=== PATIENT | male | born 1975 | race Caucasian/White ===

== ENCOUNTER → 2017-07-30 | Day surgery (SDC) | payer OTHER ==
[2017-07-15 09:49] VITALS: Ht 180.3 cm; Wt 86.4 kg
[~2017-07-30] VITALS: Ht 180.3 cm; Wt 86.4 kg
[~2017-07-30] MED LIST: ATROPINE SULFATE 0.1 MG/ML 5ML SYR IV PRN; BUPIVACAINE/EPINEPHRINE 0.25% 10 ML VIAL ONE; BUPIVACAINE/EPINEPHRINE 0.25% 1:200,000 30 ML VIAL ONE; BUPIVACAINE/EPINEPHRINE 0.5% MPF 1:200,000 10 ML VIAL ONE; CEFAZOLIN 2000 MG/60 ML D5W IV SCH; DEXAMETHASONE SOD INJ 4 MG/ML VIAL ONE; EpINEphrine INJ 1MG/ML AMP 1 MG/ML AMP ONE; FENTANYL CITRATE INJ 50 MCG/1 ML 2 ML VIAL IV PRN; FENTANYL CITRATE INJ 50 MCG/1 ML 2 ML VIAL ONE; KETO10TA PO; KETOROLAC TROMETHAMINE 30 MG/ML VIAL IV. PRN; LACTATED RINGER'S 1000ML 1,000 ML IV SCH; LIDOCAINE HCL 2% 2 ML VIAL (20MG/ML) ONE; METHYLPREDNISOLONE ACETATE 80 MG/ML VIAL ONE; MIDAZOLAM HCL 1 MG/ML 2ML VIAL ONE; ONDANSETRON INJ 2 MG/ML 2 ML VIAL IV PRN; ONDANSETRON INJ 2 MG/ML 2 ML VIAL ONE; OXYC-57 PO; OXYCODONE/ACETAMINOPHEN 5-325 TAB PO PRN; PROPOFOL IV EMULSION 10 MG/ML 20 ML VIAL IV ONE; ROPIVACAINE 0.5% 5 MG/ML 30 ML VIAL ONE; SODIUM CHLORIDE 0.9% 1000ML 1,000 ML IV SCH
--- NOTE | 2017-07-30 07:02 | History & Physical Bridge - SC ---
H&P Re-Evaluation Bridge Note: I have examined the patient, reviewed the History & Physical and in the interval since the performance of the History & Physical I have noted the following changes of clinical significance: No changes noted
--- NOTE | 2017-07-30 08:18 | [facility] Post Operative Brief Note ---
Immediate Operative Summary Operative Date Jul 30, 2017. Pre-Operative Diagnosis Right Shoulder Adhesive Capsulitis Post-Operative Diagnosis Same Procedure(s) Performed Right Shoulder Arthroscopic Capsular Release Surgeon Dr Grier Bridge Builder Surgeon(s) Garrett Chambers PA-C Estimated Blood Loss Trace Findings as above Specimens None Complication(s) None Disposition Recovery Room / PACU
--- NOTE | 2017-07-30 08:22 | Discharge Instructions-SurgCtr ---
Discharge Instructions Date of Service Jul 30, 2017. Visit Reason for Visit: Right Shoulder Adhesive Capsulitis Discharge Discharge Diagnosis / Problem: SAME ABOVE Discharge Goals Goal(s): Decrease discomfort, Improve function Activity Recommendations Activity Limitations: as noted below Lifting Limitations: gradually increase as tolerated Exercise/Sports Limitations: gradually increase as tolerated Shower/Bathe: tomorrow Driving or Machine Use: resume 1 day after discharge Anesthesia . Post Anesthesia Instructions: If you have had General Anesthesia or IV Sedation: * Do not drive today. * Resume driving when surgeon permits. * Do not make important decisions or sign legal documents today. * Call surgeon for: 1. Temperature elevations greater than 101 degrees F. 2. Uncontrollable pain. 3. Excessive bleeding. 4. Persistent nausea and vomiting. 5. Medication intolerance (nausea, vomiting or rash). * For nausea and vomiting use only clear liquids such as: tea, soda, bouillon until nausea subsides, then gradually increase diet as tolerated. * If you have any concerns or questions, call your surgeon's office. If physician is unavailable and it is an emergency, call 911 or go to the nearest emergency room. . Instructions / Follow-Up Instructions / Follow-Up MEDICATIONS: * Resume previous medications unless instructed otherwise by your surgeon. * Always take pain medication on a full stomach or with food to avoid upset stomach. * Do not drink alcohol or drive while taking narcotics. * Ibuprofen or Tylenol may be taken if narcotic not needed. SPECIAL CARE INSTRUCTIONS: __ None _X_ Keep extremity elevated and iced x 48 hours; apply ice 20-30 minutes 8-10 times/day. May remove at night. _X_ Sling (REMOVE AFTER 24 HOURS) __24 hrs/day __ Remove at night __ Shoulder Immobilizer __ 24 hrs/day __ Remove at night _X_ Dressing __ Maintain until seen in office, may shower with plastic over site _X_ Remove dressings in 24-48 hours and then may shower _X_ Cover incisions with band-aids after showering __ Do not remove steri-strips Call physician if chills or temperature rises above 102 degrees or pain unrelieved by prescribed pain medications at . . Diet Recommendations Home Diet: no limitations Fluid Restriction: None Procedures Procedures Performed: Right Shoulder Arthroscopic Capsular Release Pending Studies Studies pending at discharge: no Work Instructions Return To Work: 3 days (OR WHEN PAIN IS TOLERABLE ) Lifting Limitations: none Medical Emergencies . Who to Call and When: Medical Emergencies: If at any time you feel your situation is an emergency, please call 911 immediately. . Non-Emergent Contact Non-Emergency issues call your: Primary Care Provider Call Non-Emergent contact if: you have a fever, temperature is above 101.5 . . "Provider Documentation" section prepared by Mau Chambers. .
--- NOTE | 2017-07-30 08:30 | OPERATIVE REPORT ---
DATE OF OPERATION: 07/30/2017 PREOPERATIVE DIAGNOSIS: Adhesive capsulitis of the right shoulder. POSTOPERATIVE DIAGNOSIS: Same. PROCEDURE: Right shoulder lysis of adhesions with extensive debridement and manipulation under anesthesia. SURGEON: Dr. Andrea Grier. PAIL TESTER: Garrett Chambers PA-C, whose assistance was necessary for positioning the arm and helping with instrumentation. ANESTHESIA: General with a right interscalene nerve block. COMPLICATIONS: None. CONDITION: Stable to PACU. INDICATIONS: Francisco is a pleasant 42-year-old male who presented to my office with 6 months history of severe tightness and pain of the right shoulder. Clinical examination was diagnostic for adhesive capsulitis of the shoulder. After failing conservative treatment, he elected to undergo a capsular release. OPERATION AND FINDINGS: On 07/30/2017 he arrived at [facility] for the above procedure. He was seen in the preoperative holding area and the operative extremity was identified and signed. He was given a preoperative antibiotic and a right interscalene nerve block. He was taken back to the operating room, laid on the table in supine position and put under general anesthesia. He was then put into the beachchair position. The right shoulder was prepped and draped in sterile fashion. Time-out was done and the patient and operative extremity was properly identified. On preoperative physical examination, he had about 70 degrees of abduction and 40 degrees of external rotation, 0 degrees of internal rotation. With the arm in neutral, he had about 30 degrees of external rotation. A gentle manipulation was done under anesthesia to facilitate insertion of the scope. The scope was then introduced in the posterior portal. Diagnostic arthroscopy showed no cartilage damage to the humeral head or the glenoid. The biceps tendon was intact and went through a normal size biceps guillermina mechanism. The supraspinatus, infraspinatus, teres minor, and subscapularis were all checked and intact. There was a lot of redness, scarring and inflammation of the rotator interval, the middle and anterior inferior glenohumeral ligaments. An anterior portal was made. A shaver and ablator were used to start lysis of adhesions of the entire rotator interval. The interval was loosened up back underneath the coracoid process. The middle glenohumeral ligament was then released and the anterior inferior glenohumeral ligament was released. A shaver was then used to do an extensive debridement. The tissue was debrided back to stable margins to prevent further adherence. Significant time was spent ensuring hemostasis and ensuring not to disrupt the axillary nerve or the subscapularis. Once the tissue was adequately released and debrided, arthroscopic instruments removed from the shoulder. I was able to get his shoulder through a full range of motion. The portal sites were then closed with 3-0 nylon suture. The shoulder was then injected with 80 mg of Depo-Medrol and 5 mL of Marcaine. He was then placed in a soft dressing and a regular arm sling. He was then extubated, transferred to a litter and taken to the postanesthesia care unit in stable condition. He tolerated the procedure well. I attest to the content of the Intraoperative Record and any orders documented therein. Any exception s are noted below.
[2017-07-30 09:25] VITALS: BP 108/70; PULSE 56; TEMP 36.4; O2SAT 98
--- NOTE | 2017-07-30 09:29 | Anesthesia Progress Nt - [facility] ---
Anesthesia Post Op Note Date & Time Jul 30, 2017 at 09:28 Vital Signs Pain Intensity: 0 Vital Signs Past 12 Hours Date Time Temp Pulse Resp B/P (MAP) Pulse Ox O2 Delivery O2 Flow Rate FiO2 07/30/17 09:25 36.4 56 16 108/70 (83) 98 Room Air 07/30/17 09:09 36.2 60 16 114/77 (89) 100 Room Air 07/30/17 08:51 120/74 07/30/17 08:49 36.2 57 12 120/74 95 Room Air 07/30/17 08:49 65 12 07/30/17 08:49 64 12 95 07/30/17 08:46 115/78 07/30/17 08:44 63 16 07/30/17 08:44 62 16 95 07/30/17 08:41 116/76 07/30/17 08:39 66 23 07/30/17 08:39 65 23 98 07/30/17 08:36 121/79 07/30/17 08:34 77 15 98 07/30/17 08:34 73 15 07/30/17 08:31 130/83 07/30/17 08:29 66 16 07/30/17 08:29 66 16 98 07/30/17 08:26 124/85 07/30/17 08:24 73 14 07/30/17 08:24 71 14 97 07/30/17 08:23 36.3 75 18 129/88 98 Mask 6 07/30/17 08:21 129/88 07/30/17 07:34 20 07/30/17 07:33 64 07/30/17 07:33 64 17 100 07/30/17 07:31 115/74 07/30/17 07:28 55 15 100 07/30/17 07:28 54 07/30/17 07:27 58 14 100 07/30/17 07:27 58 07/30/17 07:26 110/75 07/30/17 07:22 58 14 100 07/30/17 07:22 58 07/30/17 07:21 112/73 07/30/17 07:19 77 22 100 07/30/17 07:19 76 07/30/17 07:16 120/77 07/30/17 07:14 66 17 100 07/30/17 07:14 66 07/30/17 07:13 124/82 07/30/17 07:09 57 07/30/17 07:09 57 0 98 07/30/17 07:04 62 0 98 07/30/17 07:04 61 07/30/17 06:59 65 19 98 07/30/17 06:59 63 19 07/30/17 06:27 36.5 65 16 116/74 (88) 98 Room Air Notes Mental Status: alert / awake / arousable, participated in evaluation Pt Amnestic to Procedure: Yes Nausea / Vomiting: adequately controlled Pain: adequately controlled Airway Patency, RR, SpO2: stable & adequate BP & HR: stable & adequate Hydration State: stable & adequate Anesthetic Complications: no major complications apparent
== END | disposition home or self-care (01) ==
LOC: X.SURG 06:15
PROVIDERS: ATTEND Orthopaedic Surgery
DX: M75.01 Adhesive capsulitis of right shoulder (principal); F17.200 Nicotine dependence, unspecified, uncomplicated

== ENCOUNTER 2017-12-10 21:28 | Emergency (ER) | payer OTHER ==
[~2017-12-10] VITALS: Ht 180.3 cm; Wt 88.0 kg
[~2017-12-10 21:28] MED LIST changes: -ATROPINE SULFATE 0.1 MG/ML 5ML SYR IV PRN; -BUPIVACAINE/EPINEPHRINE 0.25% 10 ML VIAL ONE; -BUPIVACAINE/EPINEPHRINE 0.25% 1:200,000 30 ML VIAL ONE; -BUPIVACAINE/EPINEPHRINE 0.5% MPF 1:200,000 10 ML VIAL ONE; -CEFAZOLIN 2000 MG/60 ML D5W IV SCH; -DEXAMETHASONE SOD INJ 4 MG/ML VIAL ONE; -EpINEphrine INJ 1MG/ML AMP 1 MG/ML AMP ONE; -FENTANYL CITRATE INJ 50 MCG/1 ML 2 ML VIAL IV PRN; -FENTANYL CITRATE INJ 50 MCG/1 ML 2 ML VIAL ONE; -KETOROLAC TROMETHAMINE 30 MG/ML VIAL IV. PRN; -LACTATED RINGER'S 1000ML 1,000 ML IV SCH; -LIDOCAINE HCL 2% 2 ML VIAL (20MG/ML) ONE; -METHYLPREDNISOLONE ACETATE 80 MG/ML VIAL ONE; -MIDAZOLAM HCL 1 MG/ML 2ML VIAL ONE; -ONDANSETRON INJ 2 MG/ML 2 ML VIAL IV PRN; -ONDANSETRON INJ 2 MG/ML 2 ML VIAL ONE; -OXYCODONE/ACETAMINOPHEN 5-325 TAB PO PRN; -PROPOFOL IV EMULSION 10 MG/ML 20 ML VIAL IV ONE; -ROPIVACAINE 0.5% 5 MG/ML 30 ML VIAL ONE; -SODIUM CHLORIDE 0.9% 1000ML 1,000 ML IV SCH
[2017-12-10 21:45] VITALS: TEMP 37; Ht 180.3 cm; Wt 88.0 kg
[2017-12-10] MEDS ORDERED: DICL-201 PO (21:59)
--- NOTE | 2017-12-10 22:47 | DIAGNOSTIC IMAGING REPORT ---
R HEEL MIN 2 VIEWS CLINICAL HISTORY: ?R achilles tear question FX pain COMPARISON: None. DISCUSSION: The bones and joint spaces appear intact. There is no evidence of fracture, dislocation or bony disease. There is no evidence for soft tissue swelling. IMPRESSION: Negative study. No evidence for fracture. The above report was generated using voice recognition software. It may contain grammatical, syntax or spelling errors. Electronically signed by: Jakob Jimenez M.D. 12/10/2017 10:46 PM Dictated Date/Time: 12/10/2017 10:45 PM
--- NOTE | 2017-12-10 23:13 | EMERGENCY ROOM VISIT NOTE ---
History First contact with patient: 22:03 Chief Complaint: ANKLE PAIN Stated Complaint: TORN RT ACHILLES TENDON History of Present Illness The patient is a 42 year old male who presents to the Emergency Room with complaints of right foot pain after an injury today prior to arrival. The patient was sprinting up the driveway. He tried to push off of his left foot, and felt a pop in the back of his foot. He thinks that maybe he injured his Achilles ankle. He is unable to bear weight. He denies any previous injury to the ankle. The pain extends up to the calf. He has taken diclofenac with decent pain relief. He denies any numbness or tingling. Review of Systems 6 system review negative. Please see pertinent positives in the history of present illness section. Past Medical/Surgical History Status post shoulder surgery Social History Smoking Status: Current Some Day Smoker Housing Status: lives with family Current/Historical Medications Scheduled Diclofenac (Voltaren), 75 MG PO DIRECTED Physical Exam Vital Signs Date Time Temp Pulse Resp B/P (MAP) Pulse Ox O2 Delivery O2 Flow Rate FiO2 12/10/17 23:32 74 18 128/85 98 12/10/17 21:45 37.0 76 20 135/85 98 Room Air Physical Exam VITALS: Vitals are noted on the nurse's note and reviewed by myself. Vital signs stable. GENERAL: 42-year-old male, in obvious discomfort SKIN: The skin was intact HEAD: Normocephalic atraumatic. MUSCULOSKELETAL: RLE: Swelling noted over the right Achilles. Positive Silva's sign. DP pulse +2. No pain to palpation over the heel. There is pain over the right calf. Pain with attempts dorsiflexion and plantar flexion NEURO: Patient was alert and oriented to person place and time. Normal sensation to touch. No focal neurological deficits. Medical Decision & Procedures ER Provider Diagnostic Interpretation: heel xrays IMPRESSION: Negative study. No evidence for fracture. The above report was generated using voice recognition software. It may contain grammatical, syntax or spelling errors. Electronically signed by: Jakob Jimenez M.D. 12/10/2017 10:46 PM Dictated Date/Time: 12/10/2017 10:45 PM The status of this report is Signed. Draft = Not yet reviewed or approved by Radiologist. Signed = Reviewed and approved by Radiologist. <AttendingPhy></AttendingPhy> <FamilyPhy>Andrea Thacker, DO</FamilyPhy> < PrimaryPhy>Andrea Thacker, DO</PrimaryPhy> <UnitNumber>[id number]</ UnitNumber> <VisitNumber>[id number]</VisitNumber> <PatientName>GOGO MORALES< /PatientName> <DateOfBirth>1975</DateOfBirth> <Location>[facility]</Location> < ServiceDate>12/10/17</ServiceDate> <MNE>ESINDI</MNE> <OrderingPhy>Jennifer Lamb PA-C</OrderingPhy ED Course The patient was seen and examined He declined pain medication Imaging was performed and reviewed The findings were discussed with the patient. Due to insurance reasons, he refused further treatment. I advised him of the consequences of this. He voiced understanding. The patient was discharged in a wheelchair. Medical Decision Differential diagnosis: Achilles tendon rupture, gastrocnemius injury, fracture , sprain This patient is a 42-year-old male presents to the emergency department with pain in the back of his ankle/foot. He was worried about and Achilles injury. On exam, he does have an injury to the Achilles. Imaging was negative for any fracture/avulsion. I highly advised that we splint the patient and give him crutches. The patient refused due to insurance reasons. Unfortunately, emergency room visits are not covered in his insurance plan. He agreed to try to attempt nonweightbearing status. He will see his orthopedic doctor in the morning for further treatment. This chart was completed in part utilizing [employer] Speech Voice Recognition software. Attempts were made to minimize the grammatical errors, random word insertions, pronoun errors and incomplete sentences. Any formal questions or concerns about the content, text or information contained within the body of this dictation should be directly addressed to the provider for clarification. Impression Primary Impression: Ruptured, tendon, Achilles Departure Information Dispostion Home / Self-Care Condition GOOD Referrals Andrea Thacker, (PCP) Andrea Grier DO Patient Instructions [facility] Additional Instructions You had been evaluated in the emergency department for a ruptured right Achilles tendon. I would typically recommend a splint and no weightbearing. Due to insurance reasons, this will be done at another facility. Please do not bear weight on the right foot tonight. Tylenol and ibuprofen for pain Ibuprofen 800 mg and/or Tylenol 1000 mg every 8 hours. You may also alternate these medications for more effective pain relief: Ibuprofen --4 HRS--> Tylenol --4 HRS--> ibuprofen --4 HRS--> Tylenol .... A substitute for ibuprofen would be the diclofenac that you have been taking. Please take as directed. Please do not hesitate to return to the emergency department with a new, worsening or concerning symptoms.
[2017-12-10 23:32] VITALS: BP 128/85; PULSE 74; O2SAT 98
[2017-12-16] MEDS ORDERED: OXYC-57 PO (10:26)
== END 2017-12-10 23:33 | disposition home or self-care (01) ==
LOC: C.EDB 21:30 → C.EDD 23:33
DX: S86.011A Strain of right Achilles tendon, initial encounter (principal); Y93.89 Activity, other specified; Y92.89 Other specified places as the place of occurrence of the external cause; F17.210 Nicotine dependence, cigarettes, uncomplicated; Z79.899 Other long term (current) drug therapy

== ENCOUNTER → 2017-12-16 | Day surgery (SDC) | payer OTHER ==
[2017-12-14 08:13] VITALS: Ht 180.3 cm; Wt 88.6 kg
[~2017-12-16] VITALS: Ht 180.3 cm; Wt 88.6 kg
[~2017-12-16] MED LIST changes: +ALBUT/IPRATROP 3MG/0.5MG NEB 3 ML VIAL INH ONE; +ALBUT/IPRATROP 3MG/0.5MG NEB 3 ML VIAL ONE; +ATROPINE SULFATE 0.1 MG/ML 5ML SYR IV PRN; +BUPIVACAINE 0.5 % 5 MG/1 ML MPF 30ML VIAL ONE; +BUPIVACAINE/EPINEPHRINE 0.25% 1:200,000 30 ML VIAL ONE; +CEFAZOLIN 2000MG IV PUSH 10 ML IV SCH; +CEFAZOLIN SOD 1 GM VIAL ONE; +CEFAZOLIN SOD 1000MG/5 ML IV PUSH IV ONE; +DEXAMETHASONE SOD INJ 4 MG/ML VIAL ONE; +DICL-201 PO; +EpHEDrine SULFATE INJ 50 MG/ML AMP IV PRN; +EpINEphrine INJ 1MG/ML AMP 1 MG/ML AMP ONE; +FENTANYL CITRATE INJ 50 MCG/1 ML 2 ML VIAL IV PRN; +FENTANYL CITRATE INJ 50 MCG/1 ML 2 ML VIAL ONE; +GLYCOPYRROLATE INJ 0.2 MG/ML VIAL ONE; -KETO10TA PO; +LACTATED RINGER'S 1000ML 1,000 ML IV SCH; +LIDOCAINE HCL 2% 2 ML VIAL (20MG/ML) ONE; +MIDAZOLAM HCL 1 MG/ML 2ML VIAL ONE; +MISSING PHYSICIAN SIGNATURE ON ORDER SCH; +NEOSTIGMINE METHYLSULFATE 5 MG/5 ML SYR ONE; +ONDANSETRON INJ 2 MG/ML 2 ML VIAL IV PRN; +ONDANSETRON INJ 2 MG/ML 2 ML VIAL ONE; +OXYCODONE/ACETAMINOPHEN 5-325 TAB PO PRN; +PROPOFOL IV EMULSION 10 MG/ML 20 ML VIAL IV ONE; +ROCURONIUM BROMIDE 10 MG/ML 5 ML VIAL IV ONE; +ROPIVACAINE 0.5% 5 MG/ML 30 ML VIAL ONE; +SODIUM CHLORIDE 0.9% 1000ML 1,000 ML IV SCH
--- NOTE | 2017-12-16 10:20 | [facility] Post Operative Brief Note ---
Immediate Operative Summary Operative Date Dec 16, 2017. Pre-Operative Diagnosis Right achilles tendon rupture Post-Operative Diagnosis Same as pre-op Procedure(s) Performed Right achilles tendon repair Surgeon Laborer General Surgeon(s) Carol ALEJANDRO Estimated Blood Loss 10ML Findings Right Achilles Tendon Rupture Specimens None Anesthesia General Complication(s) None Disposition Recovery Room / PACU
--- NOTE | 2017-12-16 10:30 | Discharge Instructions-SurgCtr ---
Discharge Instructions Date of Service Dec 16, 2017. Visit Reason for Visit: Right Achilles Tendon Rupture Discharge Discharge Diagnosis / Problem: right achilles tendon tear Discharge Goals Goal(s): Improve function, Therapeutic intervention Activity Recommendations Activity Limitations: per Instructions/Follow-up section Weightbearing Status: Right non-weightbearing Anesthesia . Post Anesthesia Instructions: If you have had General Anesthesia or IV Sedation: * Do not drive today. * Resume driving when surgeon permits. * Do not make important decisions or sign legal documents today. * Call surgeon for: 1. Temperature elevations greater than 101 degrees F. 2. Uncontrollable pain. 3. Excessive bleeding. 4. Persistent nausea and vomiting. 5. Medication intolerance (nausea, vomiting or rash). * For nausea and vomiting use only clear liquids such as: tea, soda, bouillon until nausea subsides, then gradually increase diet as tolerated. * If you have any concerns or questions, call your surgeon's office. If physician is unavailable and it is an emergency, call 911 or go to the nearest emergency room. . Instructions / Follow-Up Instructions / Follow-Up MEDICATIONS: * Resume previous medications unless instructed otherwise by your surgeon. * Always take pain medication on a full stomach or with food to avoid upset stomach. * Do not drink alcohol or drive while taking narcotics. * Ibuprofen or Tylenol may be taken if narcotic not needed. SPECIAL CARE INSTRUCTIONS: __ None _x_ Keep extremity elevated and iced x 48 hours; apply ice 20-30 minutes 8-10 times/day. May remove at night. _x_ Crutches __ May discard when able __ Brace/Post-op shoe __ 24 hrs/day __ Remove at night _x_ Dressing _x_ Maintain until seen in office, may shower with plastic over site __ Remove dressings in 24-48 hours and then may shower __ Cover incisions with band-aids after showering __ Do not remove steri-strips Call physician if chills or temperature rises above 102 degrees or pain unrelieved by prescribed pain medications. Office [phone] follow up in 2 weeks Diet Recommendations Home Diet: resume previous diet Procedures Procedures Performed: Right achilles tendon repair Pending Studies Studies pending at discharge: no Medical Emergencies . Who to Call and When: Medical Emergencies: If at any time you feel your situation is an emergency, please call 911 immediately. . Non-Emergent Contact Non-Emergency issues call your: Surgeon . . "Provider Documentation" section prepared by Dom Garrison. .
[2017-12-16 11:05] VITALS: TEMP 36.4
[2017-12-16 11:30] VITALS: BP 123/73; PULSE 62; O2SAT 96
--- NOTE | 2017-12-16 11:36 | Anesthesia Progress Nt - [facility] ---
Anesthesia Post Op Note Date & Time Dec 16, 2017 at 11:36 Vital Signs Pain Intensity: 0 Vital Signs Past 12 Hours Date Time Temp Pulse Resp B/P (MAP) Pulse Ox O2 Delivery O2 Flow Rate FiO2 12/16/17 11:30 62 18 123/73 (90) 96 Room Air 12/16/17 11:05 36.4 72 18 130/78 (95) 96 Room Air 12/16/17 11:00 74 18 12/16/17 11:00 73 18 143/86 97 12/16/17 10:58 36.4 73 16 143/86 97 Room Air 12/16/17 10:55 69 15 12/16/17 10:55 68 15 126/75 94 12/16/17 10:50 78 17 12/16/17 10:50 78 17 122/82 100 12/16/17 10:45 67 18 12/16/17 10:45 66 18 137/82 99 12/16/17 10:40 66 17 131/82 100 12/16/17 10:40 66 17 12/16/17 10:35 73 13 12/16/17 10:35 73 13 134/77 99 12/16/17 10:30 69 15 179/103 100 12/16/17 10:30 68 15 12/16/17 10:25 90 14 12/16/17 10:25 88 14 153/94 100 12/16/17 09:04 0 12/16/17 09:00 135/76 12/16/17 08:59 63 8 100 12/16/17 08:59 63 12/16/17 08:55 130/76 12/16/17 08:54 78 12/16/17 08:54 77 13 100 12/16/17 08:52 134/76 12/16/17 08:49 88 0 12/16/17 08:44 85 0 12/16/17 08:03 36.6 76 16 124/78 (93) 99 Room Air Notes Mental Status: alert / awake / arousable, participated in evaluation Pt Amnestic to Procedure: Yes Nausea / Vomiting: adequately controlled Pain: adequately controlled Airway Patency, RR, SpO2: stable & adequate BP & HR: stable & adequate Hydration State: stable & adequate Anesthetic Complications: no major complications apparent
--- NOTE | 2017-12-16 11:55 | OPERATIVE REPORT ---
DATE OF OPERATION: 12/16/2017 SURGEON: Francisco Escobedo MD ORGANIZATIONAL EFFECTIVENESS DIRECTOR: GIANNI Jeronimo PREOPERATIVE DIAGNOSIS: Right Achilles tendon rupture. POSTOPERATIVE DIAGNOSIS: Same. PROCEDURE PERFORMED: Right Achilles tendon repair. COMPLICATIONS: None. ESTIMATED BLOOD LOSS: 10 mL TOURNIQUET TIME: 24 minutes at 300 mmHg. ANESTHESIA: General. SPECIMENS: None. OPERATIVE INDICATIONS: The patient is a 42-year-old fairly active gentleman who injured his right leg last week. He was chasing one of his kids when he felt an acute onset of pain and a pop in his right calf. He was seen in the ER in our clinic and diagnosed with the Achilles tendon rupture. The patient elected to proceed with surgical treatment. OPERATIVE PROCEDURE: The patient taken to the operating room, identified and placed on the operating table in supine position. All contact areas were appropriately padded. IV antibiotics were provided by anesthesia team. General anesthetic was implemented by anesthesia team. A right thigh tourniquet was then placed. The patient was then placed in the prone position using the prone positioning devices. All contact areas were meticulously padded and the right foot and lower extremity were then prepped and draped in the usual sterile fashion. The right leg was elevated and exsanguinated with Esmarch and tourniquet was placed at 300 mmHg. A posterior medial approach to the Achilles tendon was then performed through a longitudinal incision made over the medial border of the Achilles tendon. Sharp dissection was carried out through the subcutaneous tissue down to the level of the fascial sheath/paratenon. I incised this longitudinally, taking great care to protect the soft tissue flap. I exposed the Achilles tendon rupture, which was obvious. There were mop ends both primarily proximally. There was no excessive shredding. The tear was complete. I then placed a #5 Tycron suture in a modified Parnell fashion through the distal tendon and a similar suture through the proximal tendon. We then plantarflexed the foot and tied the suture. This provided excellent approximation of the tendon. I then irrigated extensively. I injected locally with 30 mL of 0.5% Marcaine with epinephrine. The paratenon/fascia was then closed with 2-0 Vicryl suture in a [id number] fashion. The tourniquet was then let down for a tourniquet time of 24 minutes. Hemostasis was assured with use of electrocautery. The subcutaneous tissues were then closed with 3-0 Vicryl suture in a buried interrupted fashion. Skin was closed with 3-0 nylon suture in a simple fashion. The leg was then cleaned and dried and a sterile dressing of Xeroform, 4 x 4's, sterile cast padding and a well-padded posterior splint with the foot in about 30 degrees of plantar flexion was applied. The patient was then brought out of general anesthesia and transferred to the recovery room in stable condition. The patient tolerated the procedure well with no complications. All needle and sponge counts were correct at the end of the operation. I attest to the content of the Intraoperative Record and any orders documented therein. Any exception s are noted below.
== END | disposition home or self-care (01) ==
LOC: X.SURG 07:54
PROVIDERS: ATTEND Orthopaedic Surgery Sports Medicine
DX: S86.091A Other specified injury of right Achilles tendon, initial encounter (principal); X58.XXXA Exposure to other specified factors, initial encounter; Y93.02 Activity, running; Z90.49 Acquired absence of other specified parts of digestive tract

== ENCOUNTER → 2018-02-08 | Day surgery (SDC) | payer OTHER ==
[2018-01-22 09:11] VITALS: BMI 27.0
[~2018-02-08] VITALS: Ht 180.3 cm; Wt 88.6 kg
[~2018-02-08] MED LIST changes: -ALBUT/IPRATROP 3MG/0.5MG NEB 3 ML VIAL INH ONE; -ALBUT/IPRATROP 3MG/0.5MG NEB 3 ML VIAL ONE; -BUPIVACAINE 0.5 % 5 MG/1 ML MPF 30ML VIAL ONE; -BUPIVACAINE/EPINEPHRINE 0.25% 1:200,000 30 ML VIAL ONE; -CEFAZOLIN 2000MG IV PUSH 10 ML IV SCH; -CEFAZOLIN SOD 1 GM VIAL ONE; -CEFAZOLIN SOD 1000MG/5 ML IV PUSH IV ONE; -DEXAMETHASONE SOD INJ 4 MG/ML VIAL ONE; -EpINEphrine INJ 1MG/ML AMP 1 MG/ML AMP ONE; -FENTANYL CITRATE INJ 50 MCG/1 ML 2 ML VIAL IV PRN; -FENTANYL CITRATE INJ 50 MCG/1 ML 2 ML VIAL ONE; -GLYCOPYRROLATE INJ 0.2 MG/ML VIAL ONE; -LACTATED RINGER'S 1000ML 1,000 ML IV SCH; -MIDAZOLAM HCL 1 MG/ML 2ML VIAL ONE; -MISSING PHYSICIAN SIGNATURE ON ORDER SCH; -NEOSTIGMINE METHYLSULFATE 5 MG/5 ML SYR ONE; -ONDANSETRON INJ 2 MG/ML 2 ML VIAL IV PRN; -ONDANSETRON INJ 2 MG/ML 2 ML VIAL ONE; -OXYC-57 PO; -OXYCODONE/ACETAMINOPHEN 5-325 TAB PO PRN; -ROCURONIUM BROMIDE 10 MG/ML 5 ML VIAL IV ONE; -ROPIVACAINE 0.5% 5 MG/ML 30 ML VIAL ONE; -SODIUM CHLORIDE 0.9% 1000ML 1,000 ML IV SCH; +SODIUM CHLORIDE 0.9% 500ML 500 ML IV ONE
[2018-02-08 14:04] VITALS: Ht 180.3 cm; Wt 88.6 kg
--- NOTE | 2018-02-08 15:04 | Endo History and Physical ---
History & Physical Date of Service: Feb 08, 2018. Chief Complaint: FAMILY HX OF COLON CANCER UNCLE Referring Physician: DR ZION ROSA History of Present Illness 42 yo CM who presents for colonoscopy secondary to family history of colon cancer. Past Surgical History Hx Cardiac Surgery: No Hx Internal Defibrillator: No Hx Pacemaker: No Hx Abdominal Surgery: Yes (APPY) Hx of Implantable Prosthesis: No Hx Post-Op Nausea and Vomiting: No Hx Cancer Surgery: No Hx Thoracic Surgery: No Hx Orthopedic: Yes (RT SHOULDER SURGERY, RT ACHILLES TENDON REPAIR) Hx Urinary Tract Surgery: No Family History Colon CA Social History Smoking Status: Never Smoker Hx Substance Use: No Hx Alcohol Use: Yes (OCCASIONAL) Allergies Coded Allergies: NO KNOWN DRUG ALLERGIES (Verified Allergy, Unknown, ., 02/08/18) [place] (Verified Allergy, Unknown, HIVES, 02/08/18) Current Medications Reported Home Medications Medications Dose Route/Sig Max Daily Dose Days Date Category Dose Instructions Voltaren (Diclofenac Sodium) 75 Mg Tabcr 75 Mg PO BID PRN 01/22/18 Reported WITH FOOD Vital Signs Weight (Kilograms): 88.64 Height (Feet): 5 Height (Inches): 11 Date Time Temp Pulse Resp B/P (MAP) Pulse Ox O2 Delivery O2 Flow Rate FiO2 02/08/18 14:11 36.8 64 16 122/78 (93) 98 Room Air Physical Exam General Appearance: WD/WN, no apparent distress Respiratory/Chest: Auscultation: breath sounds normal Cardiovascular: Heart Auscultation: RRR Abdomen: Bowel Sounds: normal Inspection & Palpation: soft, non-distended, no tenderness, guarding & rebound Assessment and Plan Assessment: 42 yo CM who presents for colonoscopy secondary to family history of colon cancer. Plan: Proceed with colonoscopy.
--- NOTE | 2018-02-08 15:38 | Anesthesiology Progress Note ---
Anesthesia Post Op Note Date & Time Feb 08, 2018 at 15:38 Vital Signs Pain Intensity: 0 Vital Signs Past 12 Hours Date Time Temp Pulse Resp B/P (MAP) Pulse Ox O2 Delivery O2 Flow Rate FiO2 02/08/18 14:11 36.8 64 16 122/78 (93) 98 Room Air Notes Mental Status: alert / awake / arousable, participated in evaluation Pt Amnestic to Procedure: Yes Nausea / Vomiting: adequately controlled Pain: adequately controlled Airway Patency, RR, SpO2: stable & adequate BP & HR: stable & adequate Hydration State: stable & adequate Anesthetic Complications: no major complications apparent
--- NOTE | 2018-02-08 15:55 | GI REPORT ---
Procedure Date: 02/08/2018 2:32 PM Procedure: Colonoscopy Indications: Family history of colon cancer in a distant relative Medicines: Monitored Anesthesia Care Complications: No immediate complications. Estimated Blood Loss: Estimated blood loss: none. Procedure: Pre-Anesthesia Assessment: - Prior to the procedure, a History and Physical was performed, and patient medications and allergies were reviewed. The patient's tolerance of previous anesthesia was also reviewed. The risks and benefits of the procedure and the sedation options and risks were discussed with the patient. All questions were answered, and informed consent was obtained. Prior Anticoagulants: The patient has taken no previous anticoagulant or antiplatelet agents. ASA Grade Assessment: II - A patient with mild systemic disease. After reviewing the risks and benefits, the patient was deemed in satisfactory condition to undergo the procedure. After I obtained informed consent, the scope was passed under direct vision. Throughout the procedure, the patient's blood pressure, pulse, and oxygen saturations were monitored continuously. The scope was introduced through the anus and advanced to the terminal ileum. The colonoscopy was performed without difficulty. The patient tolerated the procedure well. The quality of the bowel preparation was good. The terminal ileum, the appendiceal orifice and the rectum were photographed. Findings: The perianal and digital rectal examinations were normal. Non-bleeding internal hemorrhoids were found during retroflexion. The hemorrhoids were small. The exam was otherwise without abnormality. Impression: - Non-bleeding internal hemorrhoids. - The examination was otherwise normal. - No specimens collected. Recommendation: - Resume previous diet. - Continue present medications. - Repeat colonoscopy in 5 years for surveillance. - Return to primary care physician as previously scheduled. Michael White, 02/08/2018 3:55:41 PM This report has been signed electronically. Note Initiated On: 02/08/2018 2:32 PM I attest to the content of the Intraoperative Record and orders documented therein, exceptions below
--- NOTE | 2018-02-08 15:59 | Discharge Instructions ---
Endoscopy Patient Instructions Date / Procedure(s) Performed Feb 08, 2018. Colonoscopy Allergy Information Coded Allergies: NO KNOWN DRUG ALLERGIES (Verified Allergy, Unknown, ., 02/08/18) [place] (Verified Allergy, Unknown, HIVES, 02/08/18) Discharge Date / Findings Feb 08, 2018. Internal hemorrhoids Medication Instructions OK to resume all medications today as prescribed Reported Home Medications Medications Dose Route/Sig Max Daily Dose Days Date Category Dose Instructions Voltaren (Diclofenac Sodium) 75 Mg Tabcr 75 Mg PO BID PRN 01/22/18 Reported WITH FOOD Provider Instructions Activity Restrictions - No exercising or heavy lifting for 24 hours. - Do not drink alcohol the day of the procedure. - Do not drive a car or operate machinery until the day after the procedure. - Do not make any important decisions or sign important papers in 24 hours after the procedure. Following Day: - Return to full activity which may include returning to work/school. Diet Start your diet with liquids and light foods (jello, soup, juice, toast). Then eat your usual diet if not nauseated. Treatment For Common After Affects For mild abdominal pain, bloating, or excessive gas: - Rest - Eat lightly - Lie on right side Follow-Up Information Follow-up with DR ZION ROSA as scheduled Anesthesia Information What You Should Know You have had a procedure that required some medicine to reduce anxiety and discomfort. This treatment is called moderate sedation. After receiving the treatment, you may be sleepy, but you will be able to breathe on your own. The effects of the treatment may last for several hours. Follow these instructions along with Activity/Diet recommendations noted above: * Do NOT do anything where dizziness or clumsiness would be dangerous. * Rest quietly at home today, then you can be up and about tomorrow. * Have a responsible person stay with you the rest of today. * You may have had an I.V. today. If so, you may take the dressing off later today. Recommendations Call your doctor if: * Trouble breathing * Continuous vomiting for more than 24 hours * Temperature above 101 degrees * Severe abdominal pain or bloating * Pain not relieved by pain medicine ordered * There is increased drainage or redness from any incision * A large amount of rectal bleeding greater than 2-3 tablespoons. (If you had a polyp/s removed or have hemorrhoids, a small amount of blood - from the rectum is to be expected.) * You have any unanswered questions or concerns. IN THE EVENT OF A SERIOUS EMERGENCY, GO TO THE NEAREST EMERGENCY ROOM Your discharge instructions were prepared by provider Michael White. Patient Instructions Signature Page Ketan Sidhu Patient (or Guardian) Signature/Date: I have read and understand the instructions given to me by my caregivers. Caregiver/RN/Doctor Signature/Date: The above-named patient and/or guardian has received patient instructions on this date. + Original Patient Signature Page (only) stays with chart. Please make copy for patient.
[2018-02-08 16:09] VITALS: BP 105/70; PULSE 66; O2SAT 99
== END | disposition home or self-care (01) ==
LOC: C.GI 13:47
PROVIDERS: ATTEND Internal Medicine
DX: Z12.11 Encounter for screening for malignant neoplasm of colon (principal); K64.8 Other hemorrhoids; Z91.018 Allergy to other foods; Z80.0 Family history of malignant neoplasm of digestive organs; Z90.49 Acquired absence of other specified parts of digestive tract

== ENCOUNTER 2024-03-28 05:08 | Observation (INO) ==
[2024-03-28] MEDS: ONDANSETRON INJ 2 MG/ML 2 ML VIAL IV STA (05:46)
[2024-03-28 06:19] LABS: Basophils # (auto) 0.02 K/uL (0.00-0.20); Basophils % (auto) 0.3 %; Eosinophils # (auto) 0.02 K/uL (0.00-0.50); Eosinophils % (auto) 0.3 %; Hematocrit (blood only) 42.5 % (42.0-52.0); Hemoglobin 15.3 g/dl (14.0-18.0); Immature Granulocytes # (auto) 0.02 K/uL (0.01-0.20); Immature Granulocytes % (auto) 0.3 %; Lymphocytes # (auto) 0.91 K/uL (1.20-3.40); Lymphocytes % (auto) 12.9 %; Mean Corpuscular Volume 86.2 fL (80.0-100.0); Mean Platelet Volume 9.6 fL (9.4-12.4); Monocytes # (auto) 0.71 K/uL (0.11-0.59); Monocytes % (auto) 10.1 %; Neutrophils # (auto) 5.37 K/uL (1.40-6.50); Neutrophils % (auto) 76.1 %; Platelet Count 189 K/uL (130-400); RDW Coefficient of Variation 12.1 % (11.5-14.5); RDW Standard Deviation 38.1 fL (36.4-46.3); Red Blood Count 4.93 M/uL (4.70-6.10); White Blood Count 7.05 K/ul (4.8-10.8)
[2024-03-28 06:44] LABS: Albumin Globulin Ratio 1.6 (0.9-2); Albumin Level 4.4 gm/dl (3.4-5.0); BUN Creatinine Ratio 15.7 (10-20); Bilirubin,Total 0.9 mg/dl (0.2-1.0); Calcium 9.2 mg/dl (8.6-10.3); Creatinine Clr Calc Pharmacy 115.7 ml/min; Est GFR (African American) 115.6 ml/min; Est GFR (Non-African American) 99.7 ml/min; Globulin 2.7 gm/dl (2.5-4.0); Potassium 4.1 mmol/L (3.5-5.1); Total Protein 7.1 gm/dl (6.0-8.3)
[2024-03-28] MEDS: MoRPHine SULFATE 4 MG/ML 1 ML CARP\\VIAL IV STA (07:16)
[2024-03-28] MEDS: SODIUM CHLORIDE 0.9% 1,000 ML IV ONE (07:17)
--- NOTE | 2024-03-28 07:25 | Emergency Department Note ---
Impression & Plan Cholecystitis, Abdominal pain, acute, right upper quadrant ED Provider Note NAME: GOGO MORALES AGE: 48 SEX: M : 1975 ARRIVES VIA: Walk-In INFORMANT: Patient, ED PROVIDER(S): Richi Dominguez DO CHIEF COMPLAINT: Abdominal pain HPI: The patient is a 48-year-old male who presented to the emergency department for an evaluation of abdominal pain. The patient describes right upper quadrant abdominal pain and fullness. He states his pain began over the course the last 3 to 4 days. He denies having any black or tarry stools. He denies having any chest pain. He denies having any shortness of breath. He denies having any hematuria. The patient states he had a similar episode when he was younger and was told it was because of swollen lymph nodes. He does have a history of some alcohol use a couple times a week. The patient has not been seen by his provider prior to coming emergency department. ROS: See above HPI for pertinent positives & negatives. A total of 10 systems reviewed and were otherwise negative. PAST MEDICAL HISTORY: See Below PAST SURGICAL HISTORY: See Below FAMILY HISTORY: See Below SOCIAL HISTORY: See Below HOME MEDICATIONS: See Below ALLERGIES: See Below VITALS: See Below PHYSICAL EXAMINATION: GENERAL: Patient is awake alert in no acute distress patient is resting comfortably and showing no signs of anxiety EYES: The conjunctivae are clear. The pupils are round and reactive. EARS, NOSE, MOUTH AND THROAT: The nose is without any evidence of any deformity. NECK: The neck is nontender and supple. RESPIRATORY: Normal respiratory effort is noted there is no evidence of wheezing rhonchi or rales CARDIOVASCULAR: Regular rate and rhythm noted there no murmurs rubs or gallops normal S1 normal S2. GASTROINTESTINAL: The abdomen was mildly distended. There is right upper quadrant tenderness to palpation which is moderate. BACK: No midline tenderness or or step-off noted range of motion in flexion extension as well as rotation no signs of muscle spasm noted MUSCULOSKELETAL/EXTREMITIES: There is no evidence of gross deformity full range of motion is noted in the hips and shoulders. SKIN: There is no obvious evidence of any rash. There are no petechiae, pallor or cyanosis noted. NEUROLOGIC: Patient is awake alert and oriented x3 MEDICAL DECISION MAKING: The patient is a 48-year-old male who presented to the emergency department with right-sided abdominal pain. The patient had reproducible right-sided abdominal pain on my physical exam. Pain was very significant. He was treated with IV fluids and IV pain medication. He was also treated with IV antibiotics. I discussed the patient's laboratory and radiographic studies with him. His condition appears to be consistent with cholecystitis. I discussed the patient's condition with the on-call general surgical group. They have agreed to evaluate the patient in the emergency department for further management and disposition. Triage Nursing notes reviewed. Prior medical records reviewed Vital Signs: reviewed and remarkable for no significant abnormalities Differential diagnosis: Etiologies such as appendicitis, diverticulitis, obstruction, inflammatory bowel disease, renal colic, PUD, biliary pathology, pancreatitis, mesenteric ischemia, aortic pathology, infections, genitourinary, UTI, perforated viscus, as well as others were entertained. ER treatment provided: See below Diagnostics interpreted by me: ECG:EKG was obtained in the emergency department. My interpretation is normal sinus rhythm at 60 bpm. There is no ectopy. There is no acute ST segment abnormalities noted. No previous tracing was available. Cardiac Monitoring: An order was placed for continuous cardiac monitoring. The monitor shows a rate of 72 bpm with sinus rhythm. Laboratory studies: As stated above and show below. Imaging studies: See below. Consultation(s): I discussed this case with Dr. Ambriz who is on-call for general surgery. Past Med/Surg History Medical History History of COVID-19 09/2020, test at clinic, not hosp; slight fever, body aches, loss taste/smell>resolved. Surgical History Hx of Achilles tendon repair Hx of arthroscopy of shoulder Hx of appendectomy Hx of colonoscopy Social History Smoking Status: Never smoker Second Hand Exposure: No; Do You Dip or Chew Tobacco: No; Hx Alcohol Use: Yes Hx Substance Use: No Preferred Language: German Communication Ability: Effective Molding Manager Required: No Beliefs That Will Affect Care: None marital status: Current Living Situation: Spouse and Family current occupational status: employed Feels Safe at Home: Yes Assistive Devices: None Allergies Allergies Allergy/AdvReac Type Severity Reaction Status Date / Time No Known Drug Allergies Allergy Unknown . Verified 02/20/23 11:57 strawberry Allergy Unknown HIVES Verified 02/20/23 11:57 Results & Data (ED) Vital Signs Vital Signs - 24 hr 03/28/24 05:11 03/28/24 05:31 03/28/24 05:52 Temperature 36.5 C Temperature Source Temporal Artery Scan Pulse Rate 74 62 Pulse Rate [Apical] 62 Respiratory Rate 16 18 18 Respiratory Effort / Characteristics Non-Labored Respiratory Depth Normal Respiratory Pattern Regular Blood Pressure 143/93 H Blood Pressure [Right Arm] Blood Pressure Mean 109 Blood Pressure Mean [Right Arm] Blood Pressure Position [Right Arm] Pulse Oximetry 98 96 96 Oxygen Delivery Method Room Air Room Air Room Air Sepsis Recent Fever Within 48 Hours No Sepsis New/Unexplained Change in Mental Status No Sepsis Action Taken by Nursing No Action Required 03/28/24 05:53 03/28/24 07:19 03/28/24 09:00 Temperature Temperature Source Pulse Rate 61 Pulse Rate [Apical] 68 60 Respiratory Rate 18 18 Respiratory Effort / Characteristics Non-Labored Spontaneous Non-Labored Spontaneous Respiratory Depth Normal Normal Respiratory Pattern Regular Regular Blood Pressure Blood Pressure [Right Arm] 132/87 143/96 H Blood Pressure Mean Blood Pressure Mean [Right Arm] 102 111 Blood Pressure Position [Right Arm] Lying Lying Pulse Oximetry 94 98 Oxygen Delivery Method Room Air Room Air Sepsis Recent Fever Within 48 Hours Sepsis New/Unexplained Change in Mental Status Sepsis Action Taken by Nursing 03/28/24 09:58 Temperature Temperature Source Pulse Rate 62 Pulse Rate [Apical] Respiratory Rate Respiratory Effort / Characteristics Respiratory Depth Respiratory Pattern Blood Pressure Blood Pressure [Right Arm] Blood Pressure Mean Blood Pressure Mean [Right Arm] Blood Pressure Position [Right Arm] Pulse Oximetry Oxygen Delivery Method Sepsis Recent Fever Within 48 Hours Sepsis New/Unexplained Change in Mental Status Sepsis Action Taken by [facility]dc Medications Current Medication List: was personally reviewed by me Laboratory Data Attestation: I reviewed the patient's lab results. 03/28/24 05:48 03/28/24 05:48 Lab Results 03/28/24 03/28/24 Range/Units 05:48 07:20 WBC 7.05 (4.8-10.8) K/ul RBC 4.93 (4.70-6.10) M/uL Hgb 15.3 (14.0-18.0) g/dl Hct 42.5 (42.0-52.0) % MCV 86.2 (80.0-100.0) fL MCH 31.0 (25.0-34.0) pg MCHC 36.0 (32.0-36.0) g/dL RDW Std Deviation 38.1 (36.4-46.3) fL RDW Coeff of Jessica 12.1 (11.5-14.5) % Plt Count 189 (130-400) K/uL MPV 9.6 (9.4-12.4) fL Immature Gran % (Auto) 0.3 % Neut % (Auto) 76.1 % Lymph % (Auto) 12.9 % Luna % (Auto) 10.1 % Eos % (Auto) 0.3 % Baso % (Auto) 0.3 % Neut # (Auto) 5.37 (1.40-6.50) K/uL Lymph # (Auto) 0.91 L (1.20-3.40) K/uL Luna # (Auto) 0.71 H (0.11-0.59) K/uL Eos # (Auto) 0.02 (0.00-0.50) K/uL Baso # (Auto) 0.02 (0.00-0.20) K/uL Immature Gran # (Auto) 0.02 (0.01-0.20) K/uL Sodium 138 (136-145) mmol/L Potassium 4.1 (3.5-5.1) mmol/L Chloride 104 (98-107) mmol/L Carbon Dioxide 28 (21-32) mmol/L Anion Gap 6 (3-11) BUN 14 (6-23) mg/dl Creatinine 0.89 (0.6-1.4) mg/dl Est Cr Clr Drug Dosing 115.7 ml/min Est GFR ( Amer) 115.6 ml/min Est GFR (Non-Af Amer) 99.7 ml/min BUN/Creatinine Ratio 15.7 (10-20) Glucose 123 H (70-99(Fasting)) mg/dl Calcium 9.2 (8.6-10.3) mg/dl Total Bilirubin 0.9 (0.2-1.0) mg/dl AST 15 (13-39) U/L ALT 16 (7-52) U/L Alkaline Phosphatase 50 (34-104) U/L Troponin I High Sens 3.0 (0-20) pg/ml Total Protein 7.1 (6.0-8.3) gm/dl Albumin 4.4 (3.4-5.0) gm/dl Globulin 2.7 (2.5-4.0) gm/dl Albumin/Globulin Ratio 1.6 (0.9-2) Lipase 17 (11-82) U/L Urine Color Yellow Urine Appearance Turbid A (Clear) Urine pH 8.0 H (4.5-7.5) Ur Specific [place] 1.021 (1.000-1.030) Urine Protein Negative (Negative) Urine Glucose (UA) Negative (Negative) Urine Ketones Negative (Negative) Urine Blood Negative (Negative) Urine Nitrite Negative (Negative) Urine Bilirubin Negative (Negative) Urine Urobilinogen Negative (Negative) Ur Leukocyte Esterase Negative (Negative) Urine WBC (Auto) 0-5 (0-5) /hpf Urine RBC (Auto) 0-2 (0-2) /hpf U Hyaline Cast (Auto) 0-2 (0-2) /lpf U Epithel Cells (Auto) 0-2 (0-2) /hpf Urine Bacteria (Auto) None Seen (None Seen) Amorphous Sediment Present A (None Prsent) Urine Mucus Present A (None Prsent) Administered Medications Discontinued Medications Sodium Chloride (Nss) 1,000 mls @ 999 mls/hr IV .[id number] ONE Stop: 03/28/24 08:12 Last Infusion: 03/28/24 08:19 Dose: Infused Documented By: Admin: 03/28/24 07:17 Dose: 999 mls/hr Documented By: DAKOTA Cefoxitin Sodium (Mefoxin) 2,000 mg in 60 mls @ 100 mls/hr IV NOW STA Stop: 03/28/24 08:14 Last Infusion: 03/28/24 08:20 Dose: Infused Documented By: Admin: 03/28/24 07:44 Dose: 100 mls/hr Documented By: DAKOTA Morphine Sulfate (Morphine Sulfate 4 Mg/Ml 1 Ml Carp\Vial) 4 mg IV NOW STA Stop: 03/28/24 07:13 Last Admin: 03/28/24 07:16 Dose: 4 mg Documented By: DAKOTA Ondansetron HCl (Ondansetron Inj 2 Mg/Ml 2 Ml Vial) 4 mg IV NOW STA Stop: 03/28/24 05:32 Last Admin: 03/28/24 05:46 Dose: 4 mg Documented By: WARREN Imaging Data Radiologist's Impression: Gallbladder Ultrasound 03/28/24 05:31 ABDOMINAL ULTRASOUND, RIGHT UPPER QUADRANT HISTORY: Acute right upper quadrant abdominal pain ruq pain. COMPARISON: None. FINDINGS: Pancreas: The pancreas demonstrates a normal echotexture. Liver: 18 cm in length. No hepatic mass or marginal nodularity identified. Patent portal vein. Gallbladder: Distended and diffusely debris filled with sludge measuring up to 14 cm. No shadowing cholelithiasis. Gallbladder wall is thickened measuring up to 6 mm. Trace pericholecystic fluid. The sonographic Loza sign was not reported by the packing machine pilot can router. CBD: 0.8 cm. Right kidney: No hydronephrosis. IMPRESSION: 1. Distended sludge-filled gallbladder without definite shadowing cholelithiasis identified. There is nonspecific gallbladder wall thickening with trace pericholecystic edema. Findings should be correlated clinically to exclude acute cholecystitis. 2. Mild dilation of the common bile duct. Correlate with serum bilirubin. ACT 112: Negative or not required by law. Electronically signed by: Ethan Knapp M.D. 03/28/2024 7:27 AM Discharge Plan Visit Data Chief Complaint: Abdominal Pain ED Provider: Richi Dominguez Discharge Problem: Cholecystitis, Abdominal pain, acute, right upper quadrant Patient Disposition: Being Evaluated by Surgeon Forms Stand Alone Forms: [facility] Referrals Referrals: Andrea Thacker [Primary Care Provider] -
--- NOTE | 2024-03-28 07:29 | Ultrasound Report ---
ABDOMINAL ULTRASOUND, RIGHT UPPER QUADRANT HISTORY: Acute right upper quadrant abdominal pain ruq pain. COMPARISON: None. FINDINGS: Pancreas: The pancreas demonstrates a normal echotexture. Liver: 18 cm in length. No hepatic mass or marginal nodularity identified. Patent portal vein. Gallbladder: Distended and diffusely debris filled with sludge measuring up to 14 cm. No shadowing ch olelithiasis. Gallbladder wall is thickened measuring up to 6 mm. Trace pericholecystic fluid. The so nographic Loza sign was not reported by the school social worker. CBD: 0.8 cm. Right kidney: No hydronephrosis. IMPRESSION: 1. Distended sludge-filled gallbladder without definite shadowing cholelithiasis identified. There is nonspecific gallbladder wall thickening with trace pericholecystic edema. Findings should be correla melody clinically to exclude acute cholecystitis. 2. Mild dilation of the common bile duct. Correlate with serum bilirubin. ACT 112: Negative or not required by law. Electronically signed by: Ethan Knapp M.D. 03/28/2024 7:27 AM
[2024-03-28] MEDS: cefOXitin 2,000 MG/60 ML BAG IV STA (07:44)
[2024-03-28 07:54] LABS: Amorphous Sediment Urine Present (None Prsent); Appearance Urine Turbid (Clear); Bacteria Urine Automated None Seen (None Seen); Bilirubin Urine Negative (Negative); Blood Urine Negative (Negative); Cast Urine Automated 0-2 /lpf (0-2); Color Urine Yellow; Epithelial Cell Urine Auto 0-2 /hpf (0-2); Glucose Urine UA Negative (Negative); Ketones Urine Negative (Negative); Leukocyte Esterase Urine Negative (Negative); Mucus Urine Present (None Prsent); Nitrite Urine Negative (Negative); Protein Urine Negative (Negative); RBC Urine Automated 0-2 /hpf (0-2); Specific Gravity Urine 1.021 (1.000-1.030); Urobilinogen Urine Negative (Negative); WBC Urine Automated 0-5 /hpf (0-5)
--- NOTE | 2024-03-28 11:58 | History & Physical Report ---
Date of Service March 28, 2024 Assessment & Plan (1) Abdominal pain, acute, right upper quadrant: (2) Cholecystitis: (3) Common bile duct dilatation: Plan: 0.8 cm on ultrasound normal t. bili and lfts will order MRCP Plan 48 year-old male with 3 day history of RUQ abdominal pain worse with eating with no associated fevers, chills, or changes in bowel habits. Ultrasound showing distended sludge/debris filled gallbladder will indeterminate gallbladder wall thickening at 6 mm and dilated CBD at 0.8 cm. Exam consistent with acute cholecystitis with positive Loza's in RUQ however no leukocytosis and t. bili and lfts all wnl. Will obtain MRCP today given dilated CBD for further evaluation and plan for laparoscopic cholecystectomy tomorrow with Dr. Batista. Dr. batista has seen and evaluated patient separately , see addendum for further recommendations/plan. History of Present Illness Chief Complaint: RUQ abdominal pain Primary Care Provider: Andrea Thacker Mr. Sidhu is a 48 year-old male with no significant past medial history who presented to ED with complaint of RUQ abdominal pain for 3 days. States he had some back pain on Thursday evening and then noticed right upper abdominal pain that started Thursday afternoon. States pain would be sharp in nature and come and go. Worse after eating food and during the night when trying to sleep. Denies of any fever or sweats but had some chills. No nausea, vomiting, chest pain, shortness of breath, changes in bowel habits, diarrhea, constipation, blood in stools, acholic stools, difficulty urinating or blood in urine. States he had similar episodes of abdominal pain when he was a teenager but nothing in the last 20 years. History of open appendectomy at age 30 (Small RLQ incision). No blood thinning agents. Currently rating abdominal pain 7/10 was 8/10 upon presentation and 2/10 after pain medication. Pain starting to increase again. Allergies Allergy/AdvReac Type Severity Reaction Status Date / Time No Known Drug Allergies Allergy Unknown . Verified 02/20/23 11:57 strawberry Allergy Unknown HIVES Verified 02/20/23 11:57 Past Med/Surg History Medical History History of COVID-19 09/2020, test at clinic, not hosp; slight fever, body aches, loss taste/smell>resolved. 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 Beliefs That Will Affect Care: None marital status: Current Living Situation: Spouse and Family current occupational status: employed Feels Safe at Home: Yes Assistive Devices: None Physical Exam Constitutional: WD/WN, vitals as above cooperative and comfortable; no acute distress and not ill appearing Respiratory: normal respiratory effort, lungs clear to auscultation no respiratory distress, no labored breathing and no retractions Cardiovascular: RRR, no murmur, no edema Gastrointestinal (Abdomen): Inspection/Auscultation: abdomen normal to inspection and + abdominal surgical scar (RLQ scar); abdomen not distended Percussion/Palpation: + abdomen tender (RUQ on mild palpation) and abdomen soft; no guarding, abdomen not rigid and abdomen not firm Skin: no rashes, warm and dry no jaundice Psychiatric: A+Ox3, euthymic affect Results & Data Results & Data Vital Signs (Past 12 Hours) Vital Signs Temp Pulse Pulse Resp BP BP Pulse Ox 03/28/24 11:24 03/28/24 11:00 71 18 138/88 100 03/28/24 09:58 62 03/28/24 09:00 60 18 143/96 H 98 03/28/24 07:19 68 18 132/87 94 03/28/24 05:53 61 03/28/24 05:52 62 18 96 03/28/24 05:31 62 18 96 03/28/24 05:11 36.5 C 74 16 143/93 H 98 O2 Del Method 03/28/24 11:24 Room Air 03/28/24 11:00 Room Air 03/28/24 09:58 03/28/24 09:00 Room Air 03/28/24 07:19 Room Air 03/28/24 05:53 03/28/24 05:52 Room Air 03/28/24 05:31 Room Air 03/28/24 05:11 Room Air Laboratory Results 03/28/24 03/28/24 Range/Units 07:20 05:48 WBC 7.05 (4.8-10.8) K/ul RBC 4.93 (4.70-6.10) M/uL Hgb 15.3 (14.0-18.0) g/dl Hct 42.5 (42.0-52.0) % MCV 86.2 (80.0-100.0) fL MCH 31.0 (25.0-34.0) pg MCHC 36.0 (32.0-36.0) g/dL RDW Std Deviation 38.1 (36.4-46.3) fL RDW Coeff of Jessica 12.1 (11.5-14.5) % Plt Count 189 (130-400) K/uL MPV 9.6 (9.4-12.4) fL Immature Gran % (Auto) 0.3 % Neut % (Auto) 76.1 % Lymph % (Auto) 12.9 % Dixie % (Auto) 10.1 % Eos % (Auto) 0.3 % Baso % (Auto) 0.3 % Neut # (Auto) 5.37 (1.40-6.50) K/uL Lymph # (Auto) 0.91 L (1.20-3.40) K/uL Dixie # (Auto) 0.71 H (0.11-0.59) K/uL Eos # (Auto) 0.02 (0.00-0.50) K/uL Baso # (Auto) 0.02 (0.00-0.20) K/uL Immature Gran # (Auto) 0.02 (0.01-0.20) K/uL Sodium 138 (136-145) mmol/L Potassium 4.1 (3.5-5.1) mmol/L Chloride 104 (98-107) mmol/L Carbon Dioxide 28 (21-32) mmol/L Anion Gap 6 (3-11) BUN 14 (6-23) mg/dl Creatinine 0.89 (0.6-1.4) mg/dl Est Cr Clr Drug Dosing 115.7 ml/min Est GFR ( Amer) 115.6 ml/min Est GFR (Non-Af Amer) 99.7 ml/min BUN/Creatinine Ratio 15.7 (10-20) Glucose 123 H (70-99(Fasting)) mg/dl Calcium 9.2 (8.6-10.3) mg/dl Total Bilirubin 0.9 (0.2-1.0) mg/dl AST 15 (13-39) U/L ALT 16 (7-52) U/L Alkaline Phosphatase 50 (34-104) U/L Troponin I High Sens 3.0 (0-20) pg/ml Total Protein 7.1 (6.0-8.3) gm/dl Albumin 4.4 (3.4-5.0) gm/dl Globulin 2.7 (2.5-4.0) gm/dl Albumin/Globulin Ratio 1.6 (0.9-2) Lipase 17 (11-82) U/L Urine Color Yellow Urine Appearance Turbid A (Clear) Urine pH 8.0 H (4.5-7.5) Ur Specific [place] 1.021 (1.000-1.030) Urine Protein Negative (Negative) Urine Glucose (UA) Negative (Negative) Urine Ketones Negative (Negative) Urine Blood Negative (Negative) Urine Nitrite Negative (Negative) Urine Bilirubin Negative (Negative) Urine Urobilinogen Negative (Negative) Ur Leukocyte Esterase Negative (Negative) Urine WBC (Auto) 0-5 (0-5) /hpf Urine RBC (Auto) 0-2 (0-2) /hpf U Hyaline Cast (Auto) 0-2 (0-2) /lpf U Epithel Cells (Auto) 0-2 (0-2) /hpf Urine Bacteria (Auto) None Seen (None Seen) Amorphous Sediment Present A (None Prsent) Urine Mucus Present A (None Prsent) Diagnostic Findings ABDOMINAL ULTRASOUND, RIGHT UPPER QUADRANT HISTORY: Acute right upper quadrant abdominal pain ruq pain. COMPARISON: None. FINDINGS: Pancreas: The pancreas demonstrates a normal echotexture. Liver: 18 cm in length. No hepatic mass or marginal nodularity identified. Patent portal vein. Gallbladder: Distended and diffusely debris filled with sludge measuring up to 14 cm. No shadowing cholelithiasis. Gallbladder wall is thickened measuring up to 6 mm. Trace pericholecystic fluid. The sonographic Loza sign was not reported by the lawn technician. CBD: 0.8 cm. Right kidney: No hydronephrosis. IMPRESSION: 1. Distended sludge-filled gallbladder without definite shadowing cholelithiasis identified. There is nonspecific gallbladder wall thickening with trace pericholecystic edema. Findings should be correlated clinically to exclude acute cholecystitis. 2. Mild dilation of the common bile duct. Correlate with serum bilirubin. Code Status & VTE Plan VTE Prophylaxis Plan VTE Prophylaxis will be ordered: Yes
[2024-03-28] MEDS ORDERED: ONDANSETRON INJ 2 MG/ML 2 ML VIAL IV PRN (12:46)
[2024-03-28] MEDS ORDERED: IBUPROFEN 600 MG TAB PO PRN (12:46)
[2024-03-28] MEDS ORDERED: MoRPHine SULFATE 4 MG/ML 1 ML CARP\\VIAL IV PRN (12:46)
--- NOTE | 2024-03-28 13:02 | Electrocardiogram Report ---
Test Reason : Blood Pressure : / mmHG Vent. Rate : 060 BPM Atrial Rate : 060 BPM P-R Int : 154 ms QRS Dur : 084 ms QT Int : 408 ms P-R-T Axes : 029 -03 030 degrees QTc Int : 408 ms Normal sinus rhythm Normal ECG No previous ECGs available Confirmed by Rasheed Chan ([id number]) on 03/28/2024 1:02:17 PM Referred By: Confirmed By:Rasheed Chan
[2024-03-28] MEDS: LACTATED RINGER'S 1,000 ML IV SCH (13:16)
[2024-03-28] MEDS: PIPER/TAZO 4.5g in D5W MINI-B 100 ML IV ONE (13:16)
[2024-03-28] MEDS: oxyCODONE/ACETAMINOPHEN 5mg/325mg TAB PO PRN (13:19)
--- NOTE | 2024-03-28 13:47 | Magnetic Resonance Report ---
MRCP CLINICAL HISTORY: Common bile duct dilatation. COMPARISON STUDY: Abdominal ultrasound dated 03/28/2024. TECHNIQUE: Abdominal MRCP is performed utilizing various T2-weighted sequences in the axial and coron al planes. 3-D reformats are created and assessed. IV contrast was not administered for this examinat ion. Diffusion-weighted imaging was utilized. FINDINGS: The gallbladder is distended, the wall is thickened and edematous. There is pericholecystic fluid and the appearance is consistent with acute cholecystitis. Debris within the gallbladder lumen likely re presents sludge. No discrete stones are identified. There is minimal intrahepatic biliary ductal dila tation. The common bile duct is mildly dilated measuring up to 7.5 mm in diameter. Question a tiny me niscus just above the ampulla, best seen on the coronal FIESTA image #14. A small distal common bile duct stone is not excluded. The pancreatic duct is normal in caliber. The unenhanced liver, spleen, pancreas, adrenal glands, and kidneys are grossly unremarkable. There i s trace perihepatic ascites. The abdominal aorta is normal in course and caliber. No bowel obstructio n is seen. No lymphadenopathy is seen. There is no pleural effusion. The visualized bony structures a ppear intact. IMPRESSION: 1. Acute cholecystitis. 2. There is mild intra and extrahepatic biliary ductal dilatation. Question a small meniscus just abo ve the ampulla such that a small distal common duct stone is not excluded. 3. Trace perihepatic ascites. Dictated: 03/28/2024 12:41 PM Transcribed: 03/28/2024 1:01 PM Theron [id number] ADRIAN_Luca [id number] Electronically signed by: Prashant Shipman M.D. 03/28/2024 1:45 PM
[2024-03-28] MEDS: PIPERACILLIN/TAZOBACTAM 4.5 GM in DEXTROSE 5% MINI-B 100 ML IV SCH (18:38)
[2024-03-29 07:26] LABS: Basophils # (auto) 0.01 K/uL (0.00-0.20); Basophils % (auto) 0.1 %; Eosinophils # (auto) 0.01 K/uL (0.00-0.50); Eosinophils % (auto) 0.1 %; Hematocrit (blood only) 40.7 % (42.0-52.0); Hemoglobin 14.5 g/dl (14.0-18.0); Immature Granulocytes # (auto) 0.03 K/uL (0.01-0.20); Immature Granulocytes % (auto) 0.4 %; Lymphocytes # (auto) 0.77 K/uL (1.20-3.40); Lymphocytes % (auto) 9.3 %; Mean Corpuscular Hemoglobin 30.5 pg (25.0-34.0); Mean Corpuscular Hgb Conc 35.6 g/dL (32.0-36.0); Mean Corpuscular Volume 85.7 fL (80.0-100.0); Mean Platelet Volume 9.9 fL (9.4-12.4); Monocytes # (auto) 0.95 K/uL (0.11-0.59); Monocytes % (auto) 11.4 %; Neutrophils # (auto) 6.55 K/uL (1.40-6.50); Neutrophils % (auto) 78.7 %; Platelet Count 174 K/uL (130-400); RDW Coefficient of Variation 11.9 % (11.5-14.5); Red Blood Count 4.75 M/uL (4.70-6.10); White Blood Count 8.32 K/ul (4.8-10.8)
[2024-03-29] MEDS: PANTOprazole 40 MG TAB PO SCH (07:30)
[2024-03-29 07:43] LABS: Albumin Globulin Ratio 1.5 (0.9-2); Albumin Level 3.8 gm/dl (3.4-5.0); BUN Creatinine Ratio 10.3 (10-20); Bilirubin,Total 1.6 mg/dl (0.2-1.0); Calcium 8.1 mg/dl (8.6-10.3); Creatinine Clr Calc Pharmacy 129.2 ml/min; Est GFR (Non-African American) 105.3 ml/min; Globulin 2.5 gm/dl (2.5-4.0); Potassium 3.9 mmol/L (3.5-5.1); Total Protein 6.3 gm/dl (6.0-8.3)
--- NOTE | 2024-03-29 09:24 | History & Physical Bridge Note ---
Date of Service March 29, 2024 History & Physical Bridge Note I have examined the patient, reviewed the History & Physical and in the interval since the performance of the History & Physical I have noted the following changes of clinical significance: no changes noted
[2024-03-29] MEDS ORDERED: LIDOCAINE 2% 2 ML VIAL/AMP(20MG/ML) INFIL ONE (09:30)
[2024-03-29] MEDS ORDERED: ONDANSETRON INJ 2 MG/ML 2 ML VIAL ONE (09:30)
[2024-03-29] MEDS ORDERED: DEXAMETHASONE SOD INJ 4 MG/ML VIAL ONE (09:30)
[2024-03-29] MEDS ORDERED: MIDAZOLAM HCL 1 MG/ML 2ML VIAL ONE (09:30)
[2024-03-29] MEDS ORDERED: ROCURONIUM BROMIDE 10 MG/ML 5 ML VIAL IV ONE (09:30)
[2024-03-29] MEDS ORDERED: fentaNYL citrate PF 100 MCG/2 ML VIAL ONE ×2 (09:30→10:27)
[2024-03-29] MEDS ORDERED: SUGAMMADEX SODIUM 200 MG/2 ML VIAL IV ONE (09:30)
--- NOTE | 2024-03-29 09:40 | Anesthesiology Consultation ---
Date of Service March 29, 2024 Assessment & Plan Chart Review Chart Review: Acceptable Risk for Surgery and Patient NOT seen in Pre Admission Testing Consults Requested none History Surgery Operation Date: 03/29/24 10:00 Proposed Procedures p Laparoscopic Cholecystectomy With Cholangiogram - Cal Ambriz MD Height/Weight Height: 5 ft 10 in Weight: 92.1 kg Allergies Allergy/AdvReac Type Severity Reaction Status Date / Time No Known Drug Allergies Allergy Unknown . Verified 02/20/23 11:57 strawberry Allergy Unknown HIVES Verified 02/20/23 11:57 Medications Active Medications Generic Name Dose Route Start Last Admin Trade Name Freq PRN Reason Stop Dose Admin Lactated Ringer's 1,000 mls @ 125 mls/hr 03/28/24 12:46 03/29/24 03:46 Lr IV 04/27/24 12:45 125 mls/hr .Q8H ZUNILDA Administration Piperacillin Sod/Tazobactam 100 mls @ 25 mls/hr 03/28/24 19:00 03/29/24 07:53 Sod 4.5 gm/ Dextrose IV 04/01/24 18:59 Infused Q8H ZUNILDA Infusion Protocol Oxycodone/Acetaminophen 1 tab 03/28/24 12:46 03/29/24 03:51 Oxycodone/Acetaminophen 5mg/325mg Tab PO 04/11/24 12:45 1 tab Q4H PRN Administration MODERATE Pain (4,5,6) & Pre PT Pantoprazole Sodium 40 mg 03/29/24 09:00 03/29/24 07:30 Pantoprazole 40 Mg Tab PO 04/02/24 08:59 40 mg QAM ZUNILDA Administration NPO Date Last Intake of Fluids: 03/28/24 Time Last Intake of Fluids: 23:00 Date Last Intake of Solids: 03/27/24 Time Last Intake of Solids: 18:00 Past Medical History Medical History History of COVID-19 09/2020, test at clinic, not hosp; slight fever, body aches, loss taste/smell>resolved. Past Surgical History Surgical History Hx of Achilles tendon repair Hx of arthroscopy of shoulder Hx of appendectomy Hx of colonoscopy Social History Smoking Status: Never smoker Do You Dip or Chew Tobacco: No Hx Alcohol Use: Yes Alcohol type: beer alcohol intake frequency: a few times a week Hx Substance Use: No substance use type: does not use Physical Exam Vital Signs Last Vital Signs Temp 36.8 C 03/29/24 09:10 Pulse 78 03/29/24 09:10 Resp 20 03/29/24 09:10 BP 152/93 H 03/29/24 09:10 Pulse Ox 96 03/29/24 09:10 O2 Del Method Room Air 03/29/24 09:10 Constitutional WD/WN, vitals as above cooperative and comfortable; no acute distress and not ill appearing Respiratory normal respiratory effort, lungs clear to auscultation no respiratory distress, no labored breathing and no retractions Cardiovascular RRR, no murmur, no edema Gastrointestinal (Abdomen) Inspection/Auscultation: abdomen normal to inspection and + abdominal surgical scar (RLQ scar); abdomen not distended Percussion/Palpation: + abdomen tender (RUQ on mild palpation) and abdomen soft; no guarding, abdomen not rigid and abdomen not firm Skin no rashes, warm and dry no jaundice Psychiatric A+Ox3, euthymic affect Testing Laboratory Results 03/29/24 06:29 03/29/24 06:29 Urine Color Yellow 03/28/24 07:20 Urine Appearance Turbid (Clear) A 03/28/24 07:20 Urine pH 8.0 (4.5-7.5) H 03/28/24 07:20 Ur Specific [place] 1.021 (1.000-1.030) 03/28/24 07:20 Urine Protein Negative (Negative) 03/28/24 07:20 Urine Glucose (UA) Negative (Negative) 03/28/24 07:20 Urine Ketones Negative (Negative) 03/28/24 07:20 Urine Nitrite Negative (Negative) 03/28/24 07:20 Ur Leukocyte Esterase Negative (Negative) 03/28/24 07:20 Urine WBC (Auto) 0-5 /hpf (0-5) 03/28/24 07:20 Urine RBC (Auto) 0-2 /hpf (0-2) 03/28/24 07:20 U Hyaline Cast (Auto) 0-2 /lpf (0-2) 03/28/24 07:20 U Epithel Cells (Auto) 0-2 /hpf (0-2) 03/28/24 07:20 Urine Bacteria (Auto) None Seen (None Seen) 03/28/24 07:20
[2024-03-29] MEDS ORDERED: ATROPINE SULFATE 0.1 MG/ML 10ML SYR IV PRN (09:46)
[2024-03-29] MEDS ORDERED: fentaNYL citrate PF 100 MCG/2 ML VIAL IV PRN (09:46)
[2024-03-29] MEDS ORDERED: ePHEDrine sulfate 50 MG/ML AMP IV PRN (09:46)
[2024-03-29] MEDS ORDERED: DROPERIDOL 5 MG/2 ML VIAL IV PRN (09:46)
[2024-03-29] MEDS: ceFAZolin 2000MG 2,000 MG/15 ML SYR IV SCH (10:00)
[2024-03-29] MEDS ORDERED: PHENYLEPHRINE 100MCG/ML 10ML SYR IV ONE (10:37)
[2024-03-29] MEDS: SURGICEL ABSORB HEMOSTAT 2IN X 14IN TOP ONE (11:13)
[2024-03-29] MEDS: BUPIVACAINE/EPINEPHRINE 0.5% MPF 1:200,000 30 ML VIAL ONE (11:13)
--- NOTE | 2024-03-29 11:21 | Fluoroscopy Report ---
INTRAOPERATIVE CHOLANGIOGRAM HISTORY: Post cholecystectomy. FLUOROSCOPY TIME: 6 seconds. 5 fluoroscopic spot images of the right upper quadrant. Ka,r: 4.0 mGy FINDINGS: Fluoroscopy was provided for an intraoperative cholangiogram status post cholecystectomy. C ontrast was injected through the cystic duct remnant. The common bile duct is normal in course and ca liber. There are no filling defects seen within the common bile duct to suggest a retained stone. Co ntrast extends into the small bowel. There is no intrahepatic bile duct dilatation. There is a small filling defect within the residual cystic duct which persists throughout the examination. IMPRESSION: 1. Fluoroscopy provided for an intraoperative cholangiogram status post cholecystectomy. 2. Small filling defect within the residual cystic duct which persists throughout the examination. Th is could represent a gas bubble or small stone. 3. No filling defects within the common bile duct. ACT 112: Negative or not required by law. Electronically signed by: Pieter Fitzpatrick M.D. 03/29/2024 11:19 AM
--- NOTE | 2024-03-29 11:31 | Operative Report ---
Post Operative Report Pre & Post Diagnosis Operation Date: 03/29/24 10:00 Pre-Op Diagnosis: Cholecystitis Post-Op Diagnosis: Cholecystitis I identified the patient and participated in the time-out.: Yes Procedure Operation Date: 03/29/24 10:00 Actual Procedures p Laparoscopic Cholecystectomy With Cholangiogram(Not Applicable) - Cal Ambriz MD Surgeon Cal Ambriz MD Boiler Room Operator Janie Swift PA-C Estimated Blood Loss 20 Findings Consistent with Post-Op Diagnosis Acute cholecystitis. Intraoperative cholangiogram showed filling defect in the junction between the cystic and common bile duct. Specimens Gallbladder pathology Drains None Anesthesia Type General Complications None Indications This is a 48-year-old male was admitted to the ED with acute abdominal pain. An ultrasound showed sludge in the gallbladder and a dilated common bile duct. We did an MRCP which showed a questionable filling defect therefore we will plan on doing cholecystectomy with possible cholangiogram. The cholangiogram was positive. He transferred for ERCP, he understands the risks of the procedure. Description of Procedure The patient was taken the OR and underwent excellent general endotracheal anesthesia. Their abdomen is prepped and draped normal sterile fashion. A transverse supraumbilical incision was made and dissection was taken down to identify the anterior fascia. Two Vicryl's were placed on either side of the midline and his midline was then incised. The peritoneal cavity was entered bluntly with Penny clamp. A 12mm Whitman trocar was then inserted and secured. Good pneumoperitoneum was achieved to 15 mmHg pressure. Patient is placed in head up and rolled to the left. A 11mm subxiphoid and two 5mm lateral ports were placed in the normal fashion. The gallbladder was identified was slightly inflamed. An aspirator was then used to aspirate the gallbladder. This then facilitated grasping the the fundus of the gallbladder which was retracted superiorly. The neck of the gallbladder was grasped and then retracted laterally. This splayed open the Hepatocystic triangle. Attention was then to taking down the peritoneal attachments to identify the cystic duct and cystic artery. Once these were skeletonized and a medial and lateral window was created between the gallbladder fossa and the duct, thereby ensuring the critical view. Two clips were then placed approximately cystic artery one distally, the cystic artery was transected. A clip was then placed proximally on cystic duct 1 and it was partially transected. An intraoperative cholangiogram catheter was then inserted through an 14 gauge angiocath in the anterior abdominal wall. The catheter was fed into the cystic duct and secured. Interoperative cholangiogram was performed which showed a filling defect at the junction of the cystic duct and the common duct. Both hepatic radicles filled and contrast went into the duodenum. The cholangiogram catheter was removed. An attempt was made to milk the possible stone up through the defect cystic duct without success. Three clips were then placed distally on the cystic duct and the cystic duct was transected. An electrocautery hook was then used to move the gallbladder off the gallbladder fossa. The gallbladder was then placed into an Endobag and brought out through the supraumbilical incision. The pneumoperitoneum was re-established and abdomen was irrigated out until the suction fluid was clear. There were some areas on the gallbladder fossa which were raw and were cauterized. Surgicel was used to cover the gallbladder fossa. The ports were then removed and the abdomen decompressed. The fascia of the supraumbilical incision was closed with Vicryls. 0.5% Marcaine with epinephrine local was to create a local field block. Interrupted Vicryl was used to close the skin. Dermabond was used to reinforce the incisions. Sterile dressings were applied. Patient tolerated the procedure without complication and sent to the postop recovery period of observation. Janie Swift PA-C was present and participated in the entire procedure. She was integral in skin closure, retraction, and camera manipulation. There was no qualified resident available to assist. I attest to the content of the Intraoperative Record and any orders documented therein. Any exceptions are noted below.
[2024-03-29] MEDS: IOVERSOL 50ml IV ONE (11:36)
--- NOTE | 2024-03-29 12:25 | Anesthesiology Progress Note ---
Date of Service March 29, 2024 Anesthesia Post Procedure Vital Signs Vital Signs: Temp Pulse Pulse Resp BP Pulse Ox O2 Del Method 03/29/24 11:50 86 25 H 149/88 H 93 Room Air 03/29/24 11:40 86 23 147/87 H 93 Room Air 03/29/24 11:34 97.3 F L 97 H 20 139/79 95 Room Air 03/29/24 09:10 98.2 F 78 20 152/93 H 96 Room Air 03/29/24 07:41 98.1 F 74 18 134/85 97 Room Air 03/28/24 22:30 99.1 F 75 18 133/82 96 Room Air 03/28/24 19:46 Room Air 03/28/24 15:24 97.7 F 70 16 126/74 96 Room Air 03/28/24 12:47 98.2 F 62 16 142/87 H 96 Room Air Pain Intensity Right Abdomen: Pain Intensity: 5 Transfer of Care Handoff Completed per policy Notes Mental Status: alert / awake / arousable and participated in evaluation Patient Amnestic to Procedure: Yes Nausea / Vomiting: adequately controlled Pain: adequately controlled Airway Patency, RR, SpO2: stable & adequate BP & HR: stable & adequate Hydration State: stable & adequate Anesthetic Complications: no major complications apparent and Pt Satisfied with anesthetic care
[2024-03-29] MEDS: MoRPHine SULFATE 2 MG/ML CARP IV PRN (13:14)
--- NOTE | 2024-03-29 14:07 | Discharge Summary ---
Date of Service March 29, 2024 Admission HPI Per Admitting Provider Mr. Sidhu is a 48 year-old male with no significant past medial history who presented to ED with complaint of RUQ abdominal pain for 3 days. States he had some back pain on Thursday evening and then noticed right upper abdominal pain that started Thursday afternoon. States pain would be sharp in nature and come and go. Worse after eating food and during the night when trying to sleep. Denies of any fever or sweats but had some chills. No nausea, vomiting, chest pain, shortness of breath, changes in bowel habits, diarrhea, constipation, blood in stools, acholic stools, difficulty urinating or blood in urine. States he had similar episodes of abdominal pain when he was a teenager but nothing in the last 20 years. History of open appendectomy at age 30 (Small RLQ incision). No blood thinning agents. Currently rating abdominal pain 7/10 was 8/10 upon presentation and 2/10 after pain medication. Pain starting to increase again. Principal Diagnosis Acute cholecystitis Dilated common bile duct Choledocholithiasis Discharge Exam Constitutional WD/WN, vitals as above cooperative and comfortable; no acute distress and not ill appearing Respiratory normal respiratory effort; no respiratory distress, no labored breathing and no retractions Gastrointestinal (Abdomen) Inspection/Auscultation: abdomen normal to inspection; abdomen not distended Percussion/Palpation: + abdomen tender (at incision sites) and abdomen soft; no guarding, abdomen not rigid and abdomen not firm Skin no rashes, warm and dry Psychiatric Orientation: alert and oriented x 3 Discharge Data Allergies Allergy/AdvReac Type Severity Reaction Status Date / Time No Known Drug Allergies Allergy Unknown . Verified 02/20/23 11:57 strawberry Allergy Unknown HIVES Verified 02/20/23 11:57 Consultations 03/28/24 08:06 Consult General Surgery Stat Procedures Performed Operation Date: 03/29/24 10:00 Actual Procedures p Laparoscopic Cholecystectomy With Cholangiogram(Not Applicable) - Cal Ambriz MD Ordered Studies 03/28/24 05:31 US gallbladder Stat 03/28/24 10:42 MRI MRCP [MR MRCP] Stat 03/29/24 09:45 [place] cholangiogram OR Routine Hospital Course (1) Abdominal pain, acute, right upper quadrant: (2) Cholecystitis: lap mir 03/29/2024 (3) Common bile duct dilatation: 0.8 cm on ultrasound t bili up to 1.6 today (03/29/24) LFTS increased MRCP with possible distal CBD intraoperative cholangiogram with possible distal filling defect Plan Patient presented to hospital with 3 day history of abdominal pain mostly in RUQ with associated chills, initial workup showed distended gallbladder with sludge and dilated cbd at 0.8 cm. MRCP showing cholecystitis and possible distal common bile duct. Labs were unremarkable upon presentation. Morning of HD # 1 (03/29/2024) patient's t. bili elevated to 1.6 and lfts increased. Underwent laparoscopic cholecystectomy with intraoperative cholangiogram which showed possible distal common bile duct stone. Patient being transferred to [facility] where ERCP capabilities are available. Total Time Total Time Spent Total Time Spent (In Minutes): 60 Total Time Includes: Examination of the Patient, Discharge Planning and Medication Reconciliation Discharge Plan Discharge Items Patient Disposition: Transfer Acute Care Hospital Reason For Visit: CHOLECYSTITIS Discharge Diagnosis: acute cholecystitis Elevated bilirubin Dilated Common bile duct Activity: Per Instructions section Non-emergency contact: Primary Care Provider Call non-emergency contact if: you have a fever, your temperature is above 101, your wound has increased redness, your wound has increased drainage and your wound pain has increased Follow-up/Referrals: Andrea Thacker [Primary Care Provider] - Diet: Clear liquid Addtl Attending Provider Instructions: Post-Surgical ~Discharge Instructions Activity Recommendations: - lifting limitation: (20 pounds for 3-4 weeks), - exercise/sex/sports limit: (nonstrenuous for 2 weeks), - driving or machine use limit: (none for 1 week or until no longer taking narcotic pain medication), - Shower/bathe limit: (may shower, no submerging incisions underwater for 2 weeks ) Diet: - Resume previous diet SPECIAL CARE INSTRUCTIONS: - May shower, Let water run over area and pat dry. - Leave surgical glue on incisions, this will fall off on its own. - Call the surgeon's office with any questions or concerns - - (ex. temperature higher than 101 degrees F, excessive bleeding or pain). MEDICATIONS: - Resume previous medications unless instructed otherwise by your surgeon. - may take extra strength Tylenol 650 mg every 6 hours as needed for mild pain - Percocet 1 every 6 hours, as needed for moderate to severe pain FOLLOW UP VISIT: - If not already scheduled, please call the office to schedule a two week follow-up appointment. Office number Pending Studies at Discharge: Yes (gallbladder pathology) Stand-Alone Forms: My [facility] Skilled Items Patient informed of condition?: Yes DNR: No Discharge Level of Care: Other Communicable Disease: No Discharge Prognosis: Stable Lines: Peripheral IV Urinary Catheter: No Medications and DC Order Prescriptions: New oxycodone-acetaminophen 5-325 mg tablet 1 tab PO Q6H PRN (Reason: pain) Qty: 12 0RF Discharge Orders: Discharge Order (Routine); Ordered 03/29/24 Ordered By: Janie Swift Admission Data Admit Date/Time: 03/28/24 10:42 Attending Provider: Cal Ambriz Admit Provider: Cal Ambriz Primary Care Provider: Andrea Thacker Other Providers: Cal Ambriz
[2024-03-29] MEDS: oxyCODONE/ACETAMINOPHEN 5mg/325mg TAB PO PRN (14:32)
[2024-03-29 14:43] LABS: Influenza A virus by PCR Negative (Neg); Influenza B virus by PCR Negative (Neg); RSV by PCR Negative (Neg); SARS CoV2 RNA(COVID-19) Ceph NEGATIVE (Negative)
== END 2024-03-29 17:05 | disposition short-term general hospital (02) ==
LOC: ED 05:08 → 3N 05:08